=== PATIENT | male | born 1960 | race Caucasian/White ===

== ENCOUNTER 2021-05-02 14:09 | Emergency (ER) | payer OTHER ==
[2021-05-02] MEDS ORDERED: TORAdol 30 mg Injection ONE (14:46)
[2021-05-02] MEDS: TORAdol 30 mg Injection IM ONE ×2 (14:48→15:02)
--- NOTE | 2021-05-02 15:18 | XRAY ---
Indication: Posterior calf pain. Two-dimensional targeted soft tissue ultrasound posterior left calf is negative for focal solid/cystic mass or abnormal fluid collection.
--- NOTE | 2021-05-02 15:58 | ERPHSYRPT ---
- History of Present Illness Time Seen by Provider: 05/02/21 14:33 Source: patient Exam Limitations: no limitations Patient Subjective Stated Complaint: Patient report L calf pain starting this morning around 1030-11, states he was putting ramps on a trailer and it felt li ke something hit him in the back of the leg Triage Nursing Assessment: patient to the ER ambulatory but limping on L leg. L leg swollen and tender to touch Physician History: 60 years old male presented in the ER with chief complaint of left calf pain sudden onset while he was putting ramp on a [employer] truck and believes that he strained his muscles. Patient does not report increased swelling in the calf or direct trauma but feels as he got hit with something of the back of his calf. Does not have any bony pain. Pain is moderate intensity sharp nature, aggravated with weightbearing/movements and better with resting. Denies any swelling of her calf. No difficulty movements at ankle/knee. No direct trauma to the calf. Occurred: this morning Quality: sharpness Severity of Pain-Max: moderate Severity of Pain-Current: moderate Lower Extremities Pain: leg: left Modifying Factors: Improves With: immobilization, rest. Worsens With: movement Allergies/Adverse Reactions: No Known Drug Allergies Allergy (Unverified 05/02/21 14:44) Home Medications: Metoprolol Succinate 50 mg [Toprol Xl 50 MG] 50 mg PO BID 05/02/21 [Histo ry] Hx Tetanus, Diphtheria Vaccination/Date Given: Yes Immunizations Up to Date: Yes Travel Risk - International Travel Have you traveled outside of the country in past 3 weeks: No - Coronavirus Screening Are you exhibiting any of the following symptoms?: No Close contact with a COVID-19 positive Pt in past 14-21 Days: No - Vaccine Status Have you recieved a Covid-19 vaccination: No - Review of Systems Constitutional: No Symptoms Eyes: No Symptoms Ears, Nose, & Throat: No Symptoms Respiratory: No Symptoms Cardiac: No Symptoms Abdominal/Gastrointestinal: No Symptoms Genitourinary Symptoms: No Symptoms Musculoskeletal: Myalgias Skin: No Symptoms Neurological: No Symptoms Psychological: No Symptoms Endocrine: No Symptoms Hematologic/Lymphatic: No Symptoms Immunological/Allergic: No Symptoms - Past Medical History Neurological History: Migraines Cardiac History: Hypertension Respiratory History: No Pertinent History Endocrine Medical History: No Pertinent History Musculoskeletal History: Osteoarthritis Other Medical History: PT. REPORTS HE HAS "PN ALL OVER." - Past Surgical History Past Surgical History: Yes Other Surgical History: neck surgery 3 years ago- 3 titanium "things" in neck - Social History Smoking Status: Current every day smoker How long have you smoked: 20 Exposure to second hand smoke: Yes Drug Use: none Patient Lives Alone: Yes - Nursing Vital Signs Nursing Vital Signs: Initial Vital Signs Temperature 98.4 F 05/02/21 14:24 Pulse Rate 83 05/02/21 14:24 Blood Pressure 139/76 05/02/21 14:24 O2 Sat by Pulse Oximetry 97 05/02/21 14:24 Pain Scale Pain Intensity 7 - Physical Exam General Appearance: no apparent distress, alert Eyes, Ears, Nose, Throat Exam: normal ENT inspection Neck Exam: normal inspection, supple, full range of motion Cardiovascular/Respiratory Exam: normal breath sounds, regular rate/rhythm Hips Exam: bilateral: non-tender, normal inspection, normal range of motion, no evidence of injury Legs Exam: right leg: non-tender, left leg: soft tissue tenderness (Left calf), bilateral leg: normal inspection, normal range of motion, no evidence of injury Knees Exam: bilateral knee: non-tender, normal inspection, normal range of motion, no evidence of injury Ankle Exam: bilateral ankle: non-tender, normal inspection, normal range of motion, no evidence of injury Neuro/Tendon Exam: normal sensation, normal motor functions, normal tendon functions, responds to pain Mental Status Exam: alert, oriented x 3, cooperative Skin Exam: normal color SpO2 Interpretation: normal SpO2: 97 O2 Delivery: Room Air Ordered Tests: Active Orders 24 hr Category Date Time Status EXTREMITY NON VASCULAR [US] Stat Exams 05/02/21 14:34 Completed Medication Summary Discontinued Medications Generic Name Dose Route Start Last Admin Trade Name Anatolyq PRN Reason Stop Dose Admin Ketorolac Tromethamine 30 mg 05/02/21 14:33 05/02/21 15:02 Toradol 30 Mg Injection IM 05/02/21 14:34 Not Given STAT ONE Ketorolac Tromethamine Confirm 05/02/21 14:46 Toradol 30 Mg Injection Administered 05/02/21 14:47 Dose 30 mg .ROUTE .STK-MED ONE - Progress Progress: improved, re-examined Progress Note: 05/02/21 15:56 He is given Toradol for symptomatic relief, on reevaluation feeling better. Patient does have calf tenderness and I have obtained ultrasound soft tissue which ruled out any obvious gastrocnemius tear. I believe patient has muscle strain, will give him NSAID and muscle relaxants to go home. Recommended avoiding exertional activity and outpatient follow-up. Discussed signs symptoms of worsening needing return to ER which he seems understanding. Counseled pt/family regarding: diagnosis, need for follow-up, rad results - Departure Departure Disposition: Home Clinical Impression: Strain of left calf muscle Condition: Stable Critical Care Time: No Referrals: DOCTOR,NO FAMILY [Primary Care Provider] - DANNA KAUR DO [ACTIVE STAFF] - Follow Up with PCP/3 days Instructions: Lower Extremity Muscle Strain (DC) Additional Instructions: Take Tylenol/diclofenac/Robaxin as needed. Follow-up with primary care physician for reevaluation. Avoid exertional activities. Apply ice, elevation. Return to ER for worsening pain or if develop swelling, difficulty ambulation etc. Prescriptions: Methocarbamol 500 mg [Robaxin 500 MG] 500 mg PO Q6HPRN PRN 7 Days #20 tablet PRN Reason: Pain Diclofenac Sodium 75 mg PO BID PRN 10 Days #20 tablet. PRN Reason: Pain
[2021-05-02 16:21] VITALS: BP 132/69; PULSE 68; O2SAT 96
== END 2021-05-02 16:21 | disposition home or self-care (01) ==
LOC: ED 14:09
DX: S86.912A Strain of unspecified muscle(s) and tendon(s) at lower leg level, left leg, initial encounter (principal)
CPT/HCPCS: 76881; 99283; J1885

== ENCOUNTER 2021-07-25 13:09 | Emergency (ER) | payer OTHER ==
--- NOTE | 2021-07-25 13:30 | XRAY ---
Indication: Left arm/leg "will not move correctly." Numbness. Multiple contiguous axial images obtained through the head without contrast. Comparison: None Age-appropriate global atrophy. Left and right basal ganglia demonstrates 6-7 mm remote lacunar infarcts. No acute intracranial hemorrhage, abnormal extra-axial fluid collection, or mass effect. Fourth ventricle is midline without hydrocephalus. Rivas-white matter differentiation preserved. Bony calvarium intact. Mild mucosal thickening both ethmoid/sphenoid/maxillary sinuses. Mastoid air cells are clear. Impression: 1. Tiny bilateral basal ganglia remote lacunar infarcts and mild paranasal sinus disease. 2. Remaining CT head without contrast exam is negative.
[2021-07-25 13:32] LABS: Absolute Neutrophil Ct (ANC) 3.92 (1.4-6.9); BASOPHIL % 0.3 % (0.0-0.4); Basophil (Absolute #) 0.02 (0-0.4); Eosinophil % 3.5 % (0.00-5.0); Eosinophil (Absolute #) 0.24 (0-0.5); Hematocrit 43.9 % (42-50); Hemoglobin 14.5 gm/dl (12.5-18.0); Lymphocyte (Absolute #) 2.11 (1.0-4.6); Lymphocytes % 30.8 % (24.0-44.0); Mean Cell Volume 94.4 fl (78-100); Mean Corpuscular Hemoglobin 31.2 pg (26-32); Mean Platelet Volume 10.3 fl (7.5-11.0); Monocyte (Absolute #) 0.55 (0.0-1.3); Neutrophil % 57.4 % (36.0-66.0); Platelet Count 266 K/mm3 (150-450); Red Blood Count 4.65 M/mm3 (4.1-5.6); Red Cell Distribution Width 12.8 % (11.5-14.0); White Blood Count 6.8 K/mm3 (4.0-10.5)
[2021-07-25 13:39] LABS: INR 0.94 (0.8-3.0); PROTIME 11.1 SECONDS (9.4-12.5)
[2021-07-25 13:41] LABS: PTT 30.2 SECONDS (25.1-36.5)
--- NOTE | 2021-07-25 13:46 | ERPHSYRPT ---
- History of Present Illness Source: patient Exam Limitations: no limitations Patient Subjective Stated Complaint: PT HERE FOR WEAKNESS TO LEFT SIDE OF BODY, STARTED AT WORK ABOUT 0900 TODAY, HE STATES NO INJURY, CO HEADACHE Triage Nursing Assessment: PT ALERT, RESP EASY, SKIN W/D/P. HAS WEAKNESS TO LEFT ARM AND LEG, SPEECH SLURRED AT TIMES, Physician History: 61 yo wm w sudden onset of LUE weakness,LLE weakness, and mild R facial droop beginning at 9:00AM. Pt has a h/o HTN and smokes 1.5ppd. He denies CP and dyspnea. Timing/Duration: other (9:00AM) Character of Deficits: new weakness, impaired speech, Left Facial, LLE, LUE Deficits: cannot walk, off balance Baseline/Normal Cognition: alert oriented x 3 Current Cognition: alert oriented x 3 Baseline Gait: walks w/o assistance Associated Symptoms: trouble walking, No confusion, No fatigue, No fever, No chills, No loss of consciousness, No nausea, No vomiting, No weakness, No insomnia, No muscle spasms, No numbness/tingling in legs/feet, No paresthesia, No ringing in ears, No seizures, No slurred speech, No vision changes, No chest pain Allergies/Adverse Reactions: No Known Drug Allergies Allergy (Verified 07/25/21 13:27) Home Medications: Metoprolol Succinate 50 mg [Toprol Xl 50 MG] 50 mg PO BID 05/02/21 [History] Hx Tetanus, Diphtheria Vaccination/Date Given: Yes Hx Influenza Vaccination/Date Given: No Hx Pneumococcal Vaccination/Date Given: No Immunizations Up to Date: Yes Travel Risk - International Travel Have you traveled outside of the country in past 3 weeks: No - Coronavirus Screening Are you exhibiting any of the following symptoms?: No Close contact with a COVID-19 positive Pt in past 14-21 Days: No - Vaccine Status Have you recieved a Covid-19 vaccination: No - Vaccination Dates Comment: COVED 4 MONTHS AGO - Review of Systems Constitutional: No Symptoms, Weakness Eyes: No Symptoms Ears, Nose, & Throat: No Symptoms Respiratory: No Symptoms Cardiac: No Symptoms Abdominal/Gastrointestinal: No Symptoms Genitourinary Symptoms: No Symptoms Musculoskeletal: No Symptoms Skin: No Symptoms Neurological: Focal Weakness Psychological: No Symptoms Endocrine: No Symptoms Hematologic/Lymphatic: No Symptoms Immunological/Allergic: No Symptoms - Past Medical History Neurological History: Migraines Cardiac History: Hypertension Respiratory History: No Pertinent History Endocrine Medical History: No Pertinent History Musculoskeletal History: Osteoarthritis Other Medical History: PT. REPORTS HE HAS "PN ALL OVER." - Past Surgical History Past Surgical History: Yes Other Surgical History: neck surgery 3 years ago- 3 titanium "things" in neck - Social History Smoking Status: Current every day smoker How long have you smoked: 20 Exposure to second hand smoke: Yes Drug Use: none Patient Lives Alone: Yes Significant Family History: no pertinent family hx - Nursing Vital Signs Nursing Vital Signs: Initial Vital Signs Temperature 97.8 F 07/25/21 13:11 Pulse Rate 87 07/25/21 13:11 Respiratory Rate 18 07/25/21 13:11 Blood Pressure 151/92 07/25/21 13:11 O2 Sat by Pulse Oximetry 97 07/25/21 13:11 Pain Scale Pain Intensity 9 Hypertensive - Nathanael Coma Scale Best Eye Response (Gibson): (4) open spontaneously Best Verbal Response (Gibson): (5) oriented Best Motor Response (Gibson): (6) obeys commands Gibson Total: 15 - Physical Exam General Appearance: no apparent distress Eye Exam: bilateral eye: normal inspection, PERRL, EOMI Ears, Nose, Throat Exam: normal ENT inspection, TMs normal, pharynx normal, mois t mucous membranes Neck Exam: normal inspection, non-tender, supple, full range of motion, No meningismus, No mass, No Brudzinski, No Kernig's Respiratory: normal breath sounds, lungs clear, airway intact, No respiratory distress Cardiovascular: regular rate/rhythm, normal heart sounds, normal peripheral pulses, No murmur Gastrointestinal: soft, normal bowel sounds, No tenderness Back Exam: normal inspection, normal range of motion Extremity Exam: normal inspection, 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 hearing, normal speech, facial asymmetry (L facial droop) Motor/Sensory: pronator drift (L) DTR: bicep (R): 2+, bicep (L): 2+, knee (R): 2+, knee (L): 2+ Skin Exam: normal color, warm, dry SpO2 Interpretation: normal SpO2: 97 O2 Delivery: Room Air - Course Nursing assessment & vital signs reviewed: Yes EKG Interpreted by Me: RATE (NSR/R87/Mildly prolonged QTc/Old inferior Q waves/Low voltage) - CT Exams Head CT Interpretation: Discussed w/radiologist (No bleed or acute infarct) Ordered Tests: Active Orders 24 hr Category Date Time Status EKG-ER Only STAT Care 07/25/21 13:11 Completed IV Insertion STAT Care 07/25/21 13:11 Completed NPO (ED) STAT Care 07/25/21 13:11 Completed HEAD WITHOUT CONTRAST [CT] Stat Exams 07/25/21 13:10 Completed CBC W DIFF Stat Lab 07/25/21 13:29 Completed CMP Stat Lab 07/25/21 13:29 Completed PROTIME WITH INR Stat Lab 07/25/21 13:29 Completed PTT Stat Lab 07/25/21 13:29 Completed TROPONIN Q3H Lab 07/25/21 13:29 Completed Lab/Rad Data: Laboratory Result Diagrams 07/25/21 13:29 07/25/21 13:29 Laboratory Results 07/25/21 07/25/21 07/25/21 Range/Units 13:29 13:29 13:29 WBC (4.0-10.5) K/mm3 RBC (4.1-5.6) M/mm3 Hgb (12.5-18.0) gm/dl Hct (42-50) % MCV (78-100) fl MCH (26-32) pg MCHC (32-36) g/dl RDW (11.5-14.0) % Plt Count (150-450) K/mm3 MPV (7.5-11.0) fl Gran % (36.0-66.0) % Eos # (Auto) (0-0.5) Absolute Lymphs (auto) (1.0-4.6) Absolute Monos (auto) (0.0-1.3) Lymphocytes % (24.0-44.0) % Monocytes % (0.0-12.0) % Eosinophils % (0.00-5.0) % Basophils % (0.0-0.4) % Absolute Granulocytes (1.4-6.9) Basophils # (0-0.4) PT 11.1 (9.4-12.5) SECONDS INR 0.94 (0.8-3.0) APTT 30.2 (25.1-36.5) SECONDS Sodium 137 (137-145) mmol/L Potassium 4.2 (3.5-5.1) mmol/L Chloride 102 (98-107) mmol/L Carbon Dioxide 23 (22-30) mmol/L Anion Gap 16.1 H (5-15) MEQ/L BUN 8 L (9-20) mg/dL Creatinine 0.90 (0.66-1.25) mg/dL Estimated GFR > 60.0 ML/MIN Glucose 103 (74-106) mg/dL Calcium 9.6 (8.4-10.2) mg/dL Total Bilirubin 0.90 (0.2-1.3) mg/dL AST 20 (17-59) U/L ALT 17 (0-50) U/L Alkaline Phosphatase 73 (38-126) U/L Troponin I < 0.012 (0.000-0.034) ng/mL Serum Total Protein 7.7 (6.3-8.2) g/dL Albumin 4.4 (3.5-5.0) g/dL 07/25/21 Range/Units 13:29 WBC 6.8 (4.0-10.5) K/mm3 RBC 4.65 (4.1-5.6) M/mm3 Hgb 14.5 (12.5-18.0) gm/dl Hct 43.9 (42-50) % MCV 94.4 (78-100) fl MCH 31.2 (26-32) pg MCHC 33.0 (32-36) g/dl RDW 12.8 (11.5-14.0) % Plt Count 266 (150-450) K/mm3 MPV 10.3 (7.5-11.0) fl Gran % 57.4 (36.0-66.0) % Eos # (Auto) 0.24 (0-0.5) Absolute Lymphs (auto) 2.11 (1.0-4.6) Absolute Monos (auto) 0.55 (0.0-1.3) Lymphocytes % 30.8 (24.0-44.0) % Monocytes % 8.0 (0.0-12.0) % Eosinophils % 3.5 (0.00-5.0) % Basophils % 0.3 (0.0-0.4) % Absolute Granulocytes 3.92 (1.4-6.9) Basophils # 0.02 (0-0.4) PT (9.4-12.5) SECONDS INR (0.8-3.0) APTT (25.1-36.5) SECONDS Sodium (137-145) mmol/L Potassium (3.5-5.1) mmol/L Chloride (98-107) mmol/L Carbon Dioxide (22-30) mmol/L Anion Gap (5-15) MEQ/L BUN (9-20) mg/dL Creatinine (0.66-1.25) mg/dL Estimated GFR ML/MIN Glucose (74-106) mg/dL Calcium (8.4-10.2) mg/dL Total Bilirubin (0.2-1.3) mg/dL AST (17-59) U/L ALT (0-50) U/L Alkaline Phosphatase (38-126) U/L Troponin I (0.000-0.034) ng/mL Serum Total Protein (6.3-8.2) g/dL Albumin (3.5-5.0) g/dL - Progress Progress Note: 07/25/21 13:51 Regional unable to accept pt. Spoke w Dr. Breaux, Neurology at [place], pt does not meet TPA criteria due to being 4.5Hr since start of symptoms but will accept pt. Pt accepted by Hospitalist, Dr. Bowling. 07/25/21 20:38 Counseled pt/family regarding: diagnosis, rad results - Departure Departure Disposition: Transfer Clinical Impression: CVA (cerebral vascular accident) Condition: Stable Critical Care Time: Yes Critical Care Time(excluding separately billable procedures): Critical 30-74 min s Referrals: DOCTOR,NO FAMILY [Primary Care Provider] -
[2021-07-25 13:49] LABS: ALBUMIN 4.4 g/dL (3.5-5.0); ALKALINE PHOSPHATASE 73 U/L (38-126); ANION GAP 16.1 MEQ/L (5-15); BLOOD UREA NITROGEN 8 mg/dL (9-20); CHLORIDE 102 mmol/L (98-107); Calcium 9.6 mg/dL (8.4-10.2); Carbon Dioxide 23 mmol/L (22-30); EST GLOMERULAR FILTRATION RATE > 60.0 ML/MIN; Glucose 103 mg/dL (74-106); Potassium 4.2 mmol/L (3.5-5.1); SGOT/AST 20 U/L (17-59); SGPT/ALT 17 U/L (0-50); SODIUM 137 mmol/L (137-145); Total Protein 7.7 g/dL (6.3-8.2)
[2021-07-25 14:21] VITALS: BP 114/80; PULSE 78
[2021-07-25 20:39] VITALS: O2SAT 97
== END 2021-07-25 14:22 | disposition short-term general hospital (02) ==
LOC: ED 13:09
DX: I63.9 Cerebral infarction, unspecified (principal); R29.810 Facial weakness; R53.1 Weakness; I10 Essential (primary) hypertension; R47.89 Other speech disturbances; R26.2 Difficulty in walking, not elsewhere classified; Z79.899 Other long term (current) drug therapy
CPT/HCPCS: 36000; 36415; 70450; 80053; 84484; 85025; 85610; 85730; 93005; 99285; 99291